=== PATIENT | male | born 1985 | race Hispanic/Latino ===

== ENCOUNTER 2017-07-17 10:44 | Emergency (ER) | payer OTHER ==
[2017-07-17] MEDS ORDERED: PROVENTIL IH ONE (11:20)
[2017-07-17 12:19] LABS: Urine Drugs of Abuse Note Disclamer
[2017-07-17 12:37] LABS: Bacteria,Urine 1+ /HPF (Negative); Bilirubin,Urine NEG (Negative); Blood,Urine NEG (Negative); Ketones,Urine TR mg/dL (Negative); Leukocyte Esterase,Urine NEG (Negative); Mucus,Urine 3+ /HPF; Nitrite,Urine NEG (Negative); Protein,Urine <15 mg/dL mg/dL (Negative); Urobilinogen,Urine < 2.0 mg/dL (<2.0); WBC,Urine < 1.0 /HPF (0.0-6.0)
[2017-07-17 12:38] LABS: Basophils % (Auto) 0.6 % (0.0-1.8); Eosinophils % (Auto) 0.8 % (0.0-4.3); Hematocrit 44.8 % (35.5-45.6); Hemoglobin 14.4 gm/dl (11.8-15.2); Mean Corpuscular HGB Conc 32 % (32-34); Mean Corpuscular Hemoglobin 29 pg (28-32); Mean Corpuscular Volume 91 fl (84-94); Platelet Count 292 K/mm3 (140-440); Red Cell Distribution Width 13.3 % (13.2-15.2); White Blood Count 7.7 K/mm3 (4.5-11.0)
[2017-07-17 12:55] LABS: Anion Gap 19 mmol/L; Blood Urea Nitrogen 23 mg/dL (9-20); Calcium 9.5 mg/dL (8.4-10.2); Carbon Dioxide 25 mmol/L (22-30); Chloride 101.1 mmol/L (98-107); Glucose 88 mg/dL (75-100); Potassium 4.2 mmol/L (3.6-5.0); Sodium 141 mmol/L (137-145)
--- NOTE | 2017-07-17 13:21 | Emergency Department Report ---
ED Psych HPI - General Chief Complaint: Medical Clearance Stated Complaint: THI EVAL Time Seen by Provider: 07/17/17 13:09 Source: police Mode of arrival: Ambulatory Limitations: Altered Mental Status - History of Present Illness Initial Comments: Patient is a unknown age male brought to the emergency department by police. Patient was found naked in the middle of the road by police and brought to [facility]. They proceeded to take him from [facility] to the emergency department. Patient will follow commands and is cooperative but will not answer any questions. He will not tell me his name. Quality: constant - Related Data Allergies Allergy/AdvReac Type Severity Reaction Status Date / Time Unable to Assess Allergy Verified 07/17/17 12:01 ED Review of Systems ROS: Stated complaint: MH EVAL Other details as noted in HPI Comment: Unobtainable due to pts medical conditions ED Past Medical Hx - Past Medical History Additional medical history: Unknown - Social History Smoking Status: Unknown if ever smoked ED Physical Exam - General Limitations: No Limitations General appearance: alert, in no apparent distress, other (disheveled) - Head Head exam: Present: atraumatic, normocephalic - Eye Eye exam: Present: normal appearance - ENT ENT exam: Present: mucous membranes moist - Neck Neck exam: Present: normal inspection - Respiratory Respiratory exam: Present: normal lung sounds bilaterally. Absent: respiratory distress, wheezes, rales - Cardiovascular Cardiovascular Exam: Present: regular rate, normal rhythm. Absent: systolic murmur, diastolic murmur, rubs, gallop - GI/Abdominal GI/Abdominal exam: Present: soft, normal bowel sounds - Rectal Rectal exam: Present: deferred - Extremities Exam Extremities exam: Present: normal inspection - Back Exam Back exam: Present: normal inspection - Neurological Exam Neurological exam: Present: alert, oriented X3 - Psychiatric Psychiatric exam: Present: normal affect, normal mood - Skin Skin exam: Present: warm, dry, intact, normal color. Absent: rash ED Course Vital Signs 07/17/17 07/17/17 10:58 11:00 Temperature 98.6 F 98.1 F Pulse Rate 57 L 63 Respiratory 18 14 Rate Blood Pressure 123/70 Blood Pressure 123/70 117/84 [Right] O2 Sat by Pulse 100 98 Oximetry ED Medical Decision Making - Lab Data Result diagrams: 07/17/17 12:11 07/17/17 12:11 Laboratory Results - last 24 hr 07/17/17 07/17/17 07/17/17 12:11 12:11 12:11 WBC 7.7 RBC 4.90 Hgb 14.4 Hct 44.8 MCV 91 MCH 29 MCHC 32 RDW 13.3 Plt Count 292 Lymph % (Auto) 19.8 Price % (Auto) 6.1 Eos % (Auto) 0.8 Baso % (Auto) 0.6 Lymph # 1.5 Price # 0.5 Eos # 0.1 Baso # 0.0 Seg Neutrophils % 72.7 H Seg Neutrophils # 5.6 Sodium 141 Potassium 4.2 Chloride 101.1 Carbon Dioxide 25 Anion Gap 19 BUN 23 H Creatinine 0.5 L Estimated GFR > 60 BUN/Creatinine Ratio 46.00 Glucose 88 Calcium 9.5 Urine Color Urine Turbidity Urine pH Ur Specific [place] Urine Protein Urine Glucose (UA) Urine Ketones Urine Blood Urine Nitrite Urine Bilirubin Urine Urobilinogen Ur Leukocyte Esterase Urine WBC (Auto) Urine RBC (Auto) Urine Bacteria (Auto) Urine Mucus Salicylates < 0.3 L Urine Opiates Screen Urine Methadone Screen Acetaminophen Ur Barbiturates Screen Ur Phencyclidine Scrn Ur Amphetamines Screen U Benzodiazepines Scrn Urine Cocaine Screen U Marijuana (THC) Screen Plasma/Serum Alcohol 07/17/17 07/17/17 07/17/17 12:11 12:11 12:14 WBC RBC Hgb Hct MCV MCH MCHC RDW Plt Count Lymph % (Auto) Price % (Auto) Eos % (Auto) Baso % (Auto) Lymph # Price # Eos # Baso # Seg Neutrophils % Seg Neutrophils # Sodium Potassium Chloride Carbon Dioxide Anion Gap BUN Creatinine Estimated GFR BUN/Creatinine Ratio Glucose Calcium Urine Color Yellow Urine Turbidity Clear Urine pH 5.0 Ur Specific [place] 1.029 Urine Protein <15 mg/dl Urine Glucose (UA) Neg Urine Ketones Tr Urine Blood Neg Urine Nitrite Neg Urine Bilirubin Neg Urine Urobilinogen < 2.0 Ur Leukocyte Esterase Neg Urine WBC (Auto) < 1.0 Urine RBC (Auto) 3.0 Urine Bacteria (Auto) 1+ Urine Mucus 3+ Salicylates Urine Opiates Screen Urine Methadone Screen Acetaminophen < 15.0 Ur Barbiturates Screen Ur Phencyclidine Scrn Ur Amphetamines Screen U Benzodiazepines Scrn Urine Cocaine Screen U Marijuana (THC) Screen Plasma/Serum Alcohol < 0.01 07/17/17 12:14 WBC RBC Hgb Hct MCV MCH MCHC RDW Plt Count Lymph % (Auto) Price % (Auto) Eos % (Auto) Baso % (Auto) Lymph # Price # Eos # Baso # Seg Neutrophils % Seg Neutrophils # Sodium Potassium Chloride Carbon Dioxide Anion Gap BUN Creatinine Estimated GFR BUN/Creatinine Ratio Glucose Calcium Urine Color Urine Turbidity Urine pH Ur Specific [place] Urine Protein Urine Glucose (UA) Urine Ketones Urine Blood Urine Nitrite Urine Bilirubin Urine Urobilinogen Ur Leukocyte Esterase Urine WBC (Auto) Urine RBC (Auto) Urine Bacteria (Auto) Urine Mucus Salicylates Urine Opiates Screen Presumptive negative Urine Methadone Screen Presumptive negative Acetaminophen Ur Barbiturates Screen Presumptive negative Ur Phencyclidine Scrn Presumptive negative Ur Amphetamines Screen Presumptive negative U Benzodiazepines Scrn Presumptive negative Urine Cocaine Screen Presumptive negative U Marijuana (THC) Screen Presumptive negative Plasma/Serum Alcohol - Medical Decision Making Patient is an unknown age male here with with catatonia. He is refusing to answer questions but does follow commands. He is disheveled but has no visible trauma. Plan to medically clear the patient and then allow psychiatric evaluation. 1013 to hold the patient for the time being as I do not feel he can take care of himself given his current status. Reassessed patient before the end of my shift and patient was still unwilling to speak to me. Portions of this chart were dictated with dictation software. There may be dictation errors contained within this note. Critical care attestation.: If time is entered above; I have spent that time in minutes in the direct care of this critically ill patient, excluding procedure time. ED Disposition Clinical Impression: Psychosis Disposition: [id number]/TX-65 PSY HOSP/PSY UNIT Is pt being admited?: No Condition: Stable Referrals: PRIMARY CARE, [Primary Care Provider] - 3-5 Days
[2017-07-17] MEDS ORDERED: ZOSYN/NS 4.5GM/100ML 4.5 GM/100 ML VIAL IV ONE (14:00)
[2017-07-17] MEDS ORDERED: PEPCID IV ONE (14:00)
--- NOTE | 2017-07-18 13:01 | Consultation ---
History of Present Illness - Reason for Consult Consult date: 07/18/17 Reason for consult: Mental Health Evaluation Requesting physician: ZEYNEP ISLAS - Chief Complaint Chief complaint: "Nonverbal" - History of Present Psychiatric Illness Patient is a unknown age male brought to the emergency department by police. Today patient is calm, with a blank stare, and nonverbal. Patient has a ridgid appearance during the assessment. Patient follows command. Per the staff, patient is eating 100% of his meal. No gestures of SI/HI's. Medications and Allergies Allergies Allergy/AdvReac Type Severity Reaction Status Date / Time Unable to Assess Allergy Verified 07/17/17 12:01 Past psychiatric history - Past Medical History Past Medical History: other (Unable to obtain) Past Surgical History: Other (Unable to obtain) - past Psychiatric treatment and history psychiatric treatment history: Unable to get a psy hx and fam hx. - Social History Social history: other (Unable to obtain) Mental Status Exam - Vital signs Last Vital Signs Temp 98 F 07/17/17 20:45 Pulse 87 07/17/17 20:45 Resp 18 07/17/17 20:45 BP 102/66 07/17/17 20:45 Pulse Ox 99 07/17/17 20:45 - Exam Narrative exam: Unable to complete MSE because of patient's condition. Results Result Diagrams: 07/17/17 12:11 07/17/17 12:11 All other labs normal. Assessment and Plan Assessment and plan: Impression: Possibly psychosis and catatonia. Today patient is calm with a blank stare. Patient has a ridgid appearance during the assessment. Recommendation/Plan: Continue 1013 with placement to inpatient psy services. Start Ativan 1 mg PO TID for Catatonia. Recommend GI and DVT prophylaxis medications. CK ordered.
[2017-07-18] MEDS: ATIVAN PO SCH ×2 (15:31→21:19)
[2017-07-19] MEDS: ATIVAN PO SCH ×2 (08:38→14:11)
[2017-07-20] MEDS: ATIVAN PO SCH (08:53)
--- NOTE | 2017-07-20 13:03 | Progress Note ---
Subjective - Reason for Consult Consult date: 07/20/17 Reason for consult: Psychiatry Follow-up - Chief Complaint Chief complaint: "Nonverbal" Patient is a unknown age male brought to the emergency department by police. Today patient is calm, with a blank stare, and nonverbal. Patient does not have a ridgid appearance at this time. He has been refusing Ativan PO that's scheduled. Per the staff, patient is eating 100% of his meal. No gestures of SI/ HI's. Mental Status Exam - Vital signs Last Vital Signs Temp 98.6 F 07/19/17 20:35 Pulse 51 L 07/19/17 20:35 Resp 17 07/19/17 20:35 BP 115/75 07/19/17 20:35 Pulse Ox 97 07/19/17 20:35 - Exam Narrative exam: MSE: Appearance: calm Behavior: blank stare Speech: nonverbal Mood: unable to assess Affect: unable to assess Thought Process: unable to assess Thought Content: no gestures of SI/HI's and AVH's Motor Activity: lying in bed Cognition: unable to assess Insight: unable to assess Judgment: unable to assess Assessment and Plan Impression: Possibly psychosis and catatonia. Today patient is calm with a blank stare. CK 183. Recommendation/Plan: Continue 1013 with placement to inpatient psy services. Modify Ativan to 1 mg IM TID for Catatonia. Recommend GI and DVT prophylaxis medications.
[2017-07-20] MEDS: ATIVAN IM SCH (20:30)
[2017-07-21] MEDS: ATIVAN IM SCH ×3 (09:44→21:50)
--- NOTE | 2017-07-21 11:08 | Progress Note ---
Subjective - Reason for Consult Consult date: 07/21/17 Reason for consult: Psychiatry Follow-up - Chief Complaint Chief complaint: "Nonverbal" Patient is a unknown age male brought to the emergency department by police. Today patient is calm during the assessment. Patient no longer has a blank stare. Patient still nonverbal, but the staff stated that he does eat 100% of meals. He was observed yesterday walking in the hallway per the staff. Patient was administered Ativan IM this AM (scheduled dose). No gestures of SI/HI's. Mental Status Exam - Vital signs Last Vital Signs Temp 98.3 F 07/20/17 20:00 Pulse 77 07/20/17 20:00 Resp 18 07/20/17 20:00 BP 116/79 07/20/17 20:00 Pulse Ox 99 07/20/17 20:00 - Exam Narrative exam: MSE: Appearance: calm Behavior: poor eye contact Speech: nonverbal Mood: unable to assess Affect: unable to assess Thought Process: unable to assess Thought Content: no gestures of SI/HI's and AVH's Motor Activity: lying in bed Cognition: unable to assess Insight: unable to assess Judgment: unable to assess Assessment and Plan Impression: Possibly psychosis and catatonia. Today patient is calm with a blank stare. CK 183. Recommendation/Plan: Continue 1013 with placement to inpatient psy services. Continue Ativan to 1 mg IM TID for Catatonia. Recommend GI and DVT prophylaxis medications.
[2017-07-21] MEDS ORDERED: ATIVAN ONE (21:44)
[2017-07-21] MEDS: ATIVAN PO SCH (21:53)
[2017-07-22] MEDS: ATIVAN IM SCH ×3 (10:30→20:05)
[2017-07-23] MEDS: ATIVAN IM SCH ×3 (07:53→20:07)
[2017-07-24] MEDS: ATIVAN IM SCH ×3 (09:35→22:19)
--- NOTE | 2017-07-24 11:09 | Progress Note ---
Subjective - Reason for Consult Consult date: 07/24/17 Reason for consult: Psychiatry Follow-up - Chief Complaint Chief complaint: "Nonverbal" Patient is a unknown age male brought to the emergency department by police. Today patient is calm during the assessment. Patient no longer has a blank stare. Patient still nonverbal and will not follow any commands. Per the staff, patient does eat 100% of his meals. No gestures of SI/HI's. Mental Status Exam - Vital signs Last Vital Signs Temp 99.1 F 07/23/17 22:00 Pulse 58 L 07/23/17 22:00 Resp 18 07/23/17 22:00 BP 105/62 07/23/17 22:00 Pulse Ox 98 07/23/17 22:00 - Exam Narrative exam: MSE: Appearance: calm Behavior: poor eye contact Speech: nonverbal Mood: unable to assess Affect: unable to assess Thought Process: unable to assess Thought Content: no gestures of SI/HI's and AVH's Motor Activity: lying in bed Cognition: unable to assess Insight: unable to assess Judgment: unable to assess Assessment and Plan Impression: Possibly psychosis and catatonia. Today patient is calm with a blank stare. Patient is not communicating with staff. Patient refusing medication. Recommendation/Plan: Continue 1013 with placement to inpatient psy services. Recommend ECT once placed in inpatient psy services. Continue Ativan to 1 mg IM TID for Catatonia. Recommend GI and DVT prophylaxis medications.
[2017-07-24] MEDS ORDERED: ATIVAN ONE (22:11)
[2017-07-25] MEDS ORDERED: ATIVAN PO ONE (01:15)
[2017-07-25] MEDS: ATIVAN IM SCH (09:40)
--- NOTE | 2017-07-25 11:23 | Progress Note ---
Subjective - Reason for Consult Consult date: 07/25/17 Reason for consult: Psychiatry Follow-up - Chief Complaint Chief complaint: "Nonverbal" 31 y.o. white male brought to the emergency department by police for bizarre behavior. Today patient is calm during the assessment. Patient nodded "yes" to eating his meal. Per the staff, the patient stated that he would take PO medication. Patient have been nonverbal during all our conversations. No gestures of SI/HI's. Mental Status Exam - Vital signs Last Vital Signs Temp 97.9 F 07/24/17 17:22 Pulse 65 07/24/17 21:19 Resp 20 07/25/17 05:36 BP 104/66 07/24/17 21:19 Pulse Ox 96 07/25/17 05:36 - Exam Narrative exam: MSE: Appearance: calm Behavior: poor eye contact Speech: nonverbal Mood: unable to assess Affect: unable to assess Thought Process: unable to assess Thought Content: no gestures of SI/HI's and AVH's Motor Activity: lying in bed Cognition: unable to assess Insight: unable to assess Judgment: unable to assess Assessment and Plan Impression: Possibly psychosis and catatonia. Today patient is calm with a blank stare. Patient is not communicating with staff. Patient refusing medication. Recommendation/Plan: Continue 1013 with placement to inpatient psy services. Recommend ECT once placed in inpatient psy services. Modify Ativan to 1 mg PO TID for Catatonia. Recommend GI and DVT prophylaxis medications.
[2017-07-25] MEDS: ATIVAN PO SCH ×2 (16:41→22:29)
[2017-07-26] MEDS: ATIVAN PO SCH ×4 (09:23→20:27)
[2017-07-26 20:58] VITALS: BP 103/62
--- NOTE | 2017-07-27 10:49 | Progress Note ---
Subjective - Reason for Consult Consult date: 07/27/17 Reason for consult: Psychiatry Follow-up - Chief Complaint Chief complaint: "Nonverbal" 31 y.o. white male brought to the emergency department by police for bizarre behavior. Today patient is calm during the assessment with no changes from his previous presentation. No gestures of SI/HI's. Mental Status Exam - Vital signs Last Vital Signs Temp 97.7 F 07/26/17 19:35 Pulse 72 07/26/17 19:35 Resp 18 07/26/17 19:35 BP 103/62 07/26/17 19:35 Pulse Ox 98 07/26/17 19:35 - Exam Narrative exam: MSE: Appearance: calm Behavior: poor eye contact Speech: nonverbal Mood: unable to assess Affect: unable to assess Thought Process: unable to assess Thought Content: no gestures of SI/HI's and AVH's Motor Activity: lying in bed Cognition: unable to assess Insight: unable to assess Judgment: unable to assess Assessment and Plan Impression: Possibly psychosis and catatonia. Today patient is calm with a blank stare. Patient is not communicating with staff. Recommendation/Plan: Continue 1013 with placement to [facility] today. Recommend ECT once placed in inpatient psy services. Continue Ativan 1 mg PO TID for Catatonia. Recommend GI and DVT prophylaxis medications.
== END 2017-07-27 09:15 ==
LOC: EDBD 10:44 → ED 10:44 → EEVIPCON 10:44 → ED 07-27 09:15
DX: F29 Unspecified psychosis not due to a substance or known physiological condition (principal); Z79.899 Other long term (current) drug therapy
CPT/HCPCS: 36415; 80048; 80307; 81001; 82550; 85025; 99285; G0480; J2060; J2543; 80320